=== PATIENT | female | born 2000 | race Two or more races ===

== ENCOUNTER 2020-06-04 10:40 | Observation (INO) | payer OTHER ==
[2020-06-04] MEDS ORDERED: PREN-96 PO (11:32)
== END 2020-06-04 11:52 | disposition home or self-care (01) | DRG 833 ==
LOC: LDRP 10:40
PROVIDERS: ADMIT Obstetrics & Gynecology; ATTEND Obstetrics & Gynecology
DX: O26.893 Other specified pregnancy related conditions, third trimester (principal); Z3A.32 32 weeks gestation of pregnancy
CPT/HCPCS: 59025; 81002; G0378

== ENCOUNTER 2020-07-22 12:40 | Inpatient (IN) | payer MEDICAID ==
[~2020-07-22] VITALS: Ht 160 cm; Wt 78.9 kg
[~2020-07-22 12:40] MED LIST: PREN-96 PO
[2020-07-22] MEDS ORDERED: LACT. RINGERS/OXYTOCIN 20UNITS 1,000 ML IV SCH (14:49)
[2020-07-22] MEDS ORDERED: LACTATED RINGER'S 1,000 ML IV SCH (14:49)
[2020-07-22] MEDS ORDERED: PHISODERM TOP SOLN 240ML BTL TOP PRN (15:00)
[2020-07-22] MEDS ORDERED: METHYLERGONOVINE MALEATE 0.2 MG/ML AMP IM PRN (15:00)
[2020-07-22] MEDS ORDERED: CARBOPROST TROMETHAMINE 250 MCG/1ML VIAL IM PRN (15:00)
[2020-07-22] MEDS ORDERED: DERMOPLAST 60ML BOTTLE TOP PRN (15:00)
[2020-07-22] MEDS ORDERED: WITCH HAZEL-GLYCERIN PAD TOP PRN (15:00)
[2020-07-22] MEDS ORDERED: LIDOCAINE 2%HCL (LOCAL ANESTH.) INJ 20ML MDV ID PRN (15:00)
[2020-07-22 15:46] LABS: Basophils # (auto) 0 10 ^3/uL (0-0.2); Eosinophils # (auto) 0 10 ^3/uL (0-0.8); Eosinophils % (auto) 0.3 % (0.0-7.0); Lymphocytes # (auto) 0.9 10 ^3/uL (0.4-5.4); Neutrophils # (auto) 5.1 10 ^3/uL (1.6-8.6); Platelet Count (auto) 168 10^3/uL (140-450)
[2020-07-22 15:47] LABS: Basophils % (auto) 0.3 % (0.0-2.0); Hematocrit 33.2 % (36.0-46.0); Hemoglobin 10.9 g/dL (12.2-16.2); Mean Corpuscular Hgb Conc. 32.7 g/dL (32.0-36.0); Mean Corpuscular Volume 82.7 fL (80.0-100.0); Monocytes # (auto) 0.5 10 ^3/uL (0-1.3); Monocytes % (auto) 7.1 % (0.0-12.0); Neutrophils % (auto) 78.3 % (37.0-80.0); Red Blood Cells 4.01 10^6/uL (4.0-5.20); Red Cell Distribution Width 14.7 % (11.8-14.3); White Blood Cell 6.5 10^3/uL (4.4-10.8)
[2020-07-22 15:59] LABS: INR 0.94 (0.9-1.15); Partial Thromboplastin Time 23.2 sec (23.0-31.2)
[2020-07-22 16:01] LABS: Albumin 2.6 g/dL (3.4-5.0); BUN/Creatinine Ratio 10.1; Calcium 8.2 mg/dL (8.5-10.1); Potassium 3.6 mmol/L (3.5-5.1)
[2020-07-22 16:03] LABS: Bilirubin, Total 0.3 mg/dL (0.2-1.0); Total Protein 6.6 g/dL (6.4-8.2)
[2020-07-22 16:24] LABS: Urine Blood Negative /uL (Negative); Urine Mucus FEW (None Seen); Urine Specific Gravity 1.013 (1.001-1.035)
[2020-07-22 16:25] LABS: Urine Bacteria NONE SEEN /hpf (None Seen); Urine WBC 3 /hpf (0 - 5)
[2020-07-22] MEDS: miSOPROStol 50 MCG per PRE-CUT 1/2 TAB PO PRN ×2 (16:28→21:45)
[2020-07-22 16:51] LABS: Alcohol, Urine < 3.0 mg/dL (0-10); Amphetamine Screen, Urine NEGATIVE (NEGATIVE); Barbiturate Scree,Urine NEGATIVE (NEGATIVE); Benzodiazephine Screen, Urine NEGATIVE (NEGATIVE); Cannabinoid Screen, Urine NEGATIVE (NEGATIVE); Cocaine Screen, Urine NEGATIVE (NEGATIVE); Opiate Scree,Urine NEGATIVE (NEGATIVE); Phencyclidine Screen, Urine NEGATIVE (NEGATIVE)
[2020-07-22] MEDS ORDERED: BUTORPHANOL TARTRATE 2 MG/1 ML VIAL IV PRN (20:30)
[2020-07-22] MEDS ORDERED: PROMETHAZINE HCL 25 MG/ML 1ML IV PRN (20:30)
[2020-07-22] MEDS ORDERED: ROPIVACAINE HCL 100 ML EPI SCH (23:10)
[2020-07-22] MEDS ORDERED: fentaNYL CITRATE 100 MCG/2 ML VL IV ONE (23:10)
[2020-07-22] MEDS ORDERED: ePHEDrine SULFATE 50 MG/ML AMP IV ONE (23:10)
[2020-07-22] MEDS ORDERED: LIDOCAINE HCL 2 %PF INJ 10ML AMP IJ ONE (23:10)
[2020-07-22] MEDS ORDERED: NALOXONE HCL 0.4 MG/ML VIAL IV ONE (23:15)
[2020-07-23] VITALS (7 sets, daily range): BP systolic 104–120; BP diastolic 52–73
[2020-07-23] MEDS ORDERED: LACTATED RINGER'S 1,000 ML IV ONE (00:07)
[2020-07-23] MEDS ORDERED: fentaNYL CITRATE 100 MCG/2 ML VL IV ONE (00:15)
[2020-07-23] MEDS ORDERED: LIDOCAINE HCL 2 %PF INJ 10ML AMP IJ ONE (00:15)
[2020-07-23] MEDS ORDERED: ePHEDrine SULFATE 50 MG/ML AMP IV ONE (00:15)
[2020-07-23] MEDS ORDERED: NALOXONE HCL 0.4 MG/ML VIAL IV ONE (00:15)
[2020-07-23] MEDS ORDERED: ROPIVACAINE HCL 100 ML EPI SCH (00:15)
[2020-07-23] MEDS ORDERED: LACT. RINGERS/OXYTOCIN 20UNITS 1,000 ML IV ONE (01:16)
[2020-07-23] MEDS ORDERED: ACETAMINOPHEN 325 MG TAB PO PRN (01:30)
[2020-07-23] MEDS: IBUPROFEN 600 MG TAB PO PRN ×3 (04:43→20:34)
[2020-07-23 05:08] LABS: RPR Non Reactive (Non Reactive)
[2020-07-23] MEDS ORDERED: TETANUS-DIPTH-ACEL PERTUSSIS 0.5ML SYR Tdap IM ONE (16:30)
[2020-07-24 03:30] VITALS: BP 98/55
[2020-07-24] MEDS: IBUPROFEN 600 MG TAB PO PRN (05:17)
[2020-07-24 06:34] VITALS: BP 116/67
== END 2020-07-24 11:26 | disposition home or self-care (01) | DRG 560 ==
LOC: LDRP 12:40 → OBSVTOIN 14:47
PROVIDERS: ADMIT Specialist; ATTEND Specialist
PROC: 10E0XZZ Delivery of Products of Conception, External Approach (ICD-10-PCS; principal; 2020-07-23)
PROC: 3E0P7VZ Introduction of Hormone into Female Reproductive, Via Natural or Artificial Opening (ICD-10-PCS; 2020-07-23)
PROC: 3E0R3BZ Introduction of Anesthetic Agent into Spinal Canal, Percutaneous Approach (ICD-10-PCS; 2020-07-23)
PROC: 00HU33Z Insertion of Infusion Device into Spinal Canal, Percutaneous Approach (ICD-10-PCS; 2020-07-23)
DX: O42.02 Full-term premature rupture of membranes, onset of labor within 24 hours of rupture (principal); O76 Abnormality in fetal heart rate and rhythm complicating labor and delivery; Z37.0 Single live birth; O71.82 Other specified trauma to perineum and vulva; O70.0 First degree perineal laceration during delivery; Z20.828 Contact with and (suspected) exposure to other viral communicable diseases; Z3A.39 39 weeks gestation of pregnancy
CPT/HCPCS: 36415; 59025; 59409; 62282; 80053; 80307; 81001; 81002; 84112; 85025; 85610; 85730; 86592; 86850; 86900; 86901; 90715; 94760; 96360; 96361; 96365; 96366; 96372; 96374; 96375; G0378; J2590